=== PATIENT | female | born 1940 | race African-American/Black ===

== ENCOUNTER 2024-03-02 16:35 | Emergency (ER) | payer BC, MEDICAID ==
[~2024-03-02] VITALS: Ht 162.6 cm; Wt 56.0 kg
[2024-03-02 17:14] VITALS: BP 151/70; PULSE 73; RESP 20; TEMP 98; O2SAT 99
[2024-03-02] MEDS: ACETAMINOPHEN 325MG TABLET PO ONE (19:15)
== END 2024-03-02 21:08 | disposition left against medical advice (07) ==
LOC: ER 16:35
DX: M54.9 Dorsalgia, unspecified (principal); F19.90 Other psychoactive substance use, unspecified, uncomplicated; Z88.0 Allergy status to penicillin
CPT/HCPCS: 74176; 99284